=== PATIENT | female | born 1945 | race American Indian/Alaskan Native ===

== ENCOUNTER 2017-03-10 09:21 | Emergency (ER) | payer MEDICARE, OTHER ==
[2017-03-10 09:36] VITALS: RESP 17; TEMP 98.6; BMI 36.2
--- NOTE | 2017-03-10 10:06 | ED PDOC ---
Arrival/HPI - General Chief Complaint: Upper Extremity Problem/Injury Time Seen by Provider: 03/10/17 10:04 Historian: Patient - History of Present Illness Narrative History of Present Illness (Text): 03/10/17 10:04 Ashley Arredondo is a 71 year old female, whose past medical history includes diabetes, who presents to the emergency department complaining neck pain radiating down right arm for 2 days. Patient describes her pain as a burning sensation which worsens upon movement and palpation. Patient denies any chest pain, back pain, or any other complaints at this time. Denies BENNETT. Denies any trauma or injury. Time/Duration: < week (2 days) Symptom Onset: Gradual Symptom Course: Unchanged Activities at Onset: Light Context: Home Past Medical History - Provider Review Nursing Documentation Reviewed: Yes - Infectious Disease Hx of Infectious Diseases: None - Tetanus Immunization Tetanus Immunization: Unknown - Reproductive Menopause: Yes - Cardiac Hx Cardiac Disorders: Yes Hx Hypertension: Yes - Pulmonary Hx Respiratory Disorders: No - Neurological Hx Neurological Disorder: No - HEENT Hx HEENT Disorder: Yes (Glasses) - Renal Hx Renal Disorder: No - Endocrine/Metabolic Hx Endocrine Disorders: Yes Hx Diabetes Mellitus Type 2: Yes - Hematological/Oncological Hx Blood Disorders: No - Integumentary Hx Dermatological Disorder: No - Musculoskeletal/Rheumatological Hx Musculoskeletal Disorders: Yes Hx Arthritis: Yes - Gastrointestinal Hx Gastrointestinal Disorders: No - Genitourinary/Gynecological Hx Genitourinary Disorders: Yes Hx Uterine Cancer: Yes (9 years ago) - Psychiatric Hx Psychophysiologic Disorder: No Hx Substance Use: No - Past Surgical History Past Surgical History: Non-Contributing - Surgical History Hx Cholecystectomy: Yes Hx Hysterectomy: Yes Other/Comment: bowel obstruction - Anesthesia Hx Anesthesia: Yes Hx Anesthesia Reactions: No Hx Malignant Hyperthermia: No - Suicidal Assessment Feels Threatened In Home Enviroment: No Family/Social History - Physician Review Nursing Documentation Reviewed: Yes Family/Social History: No Known Family HX Smoking Status: Never Smoked Hx Alcohol Use: No Hx Substance Use: No Hx Substance Use Treatment: No Allergies/Home Meds Allergies/Adverse Reactions: Allergies No Known Allergies Allergy (Verified 03/10/17 09:43) Home Medications: Home Meds Medication Instructions Recorded Confirmed Atenolol/Chlorthalidone 1 each PO DAILY 12/18/15 03/10/17 [Atenolol-Chlorthalidone 100-25] Metoclopramide [Reglan] 10 mg PO DAILY 12/18/15 03/10/17 Simvastatin [Zocor] 10 mg PO HS 12/18/15 03/10/17 Glimepiride [Amaryl] 4 mg PO BID 09/24/16 03/10/17 Insulin Glargine,Hum.rec.anlog 0 units SC HS 09/24/16 03/10/17 [Eugene Winchester] SITagliptin [Januvia] 100 mg PO DAILY 09/24/16 03/10/17 Physical Exam - Physical Exam Narrative Physical Exam (Text): - Review of Systems Constitutional: Normal. absent: Fatigue, Weight Change, Fevers Eyes: Normal ENT: Normal Respiratory: Normal absent: SOB, Cough, Sputum Cardiovascular: Normal absent: Chest pain, Palpitations, Syncope Gastrointestinal: Normal absent: Abdominal pain, Diarrhea, Nausea, Vomiting Genitourinary: Normal. absent: Dysuria, Frequency, Hematuria Musculoskeletal: Neck pain radiating down right arm. Skin: Normal Neurological: Normal absent: Focal Weakness Endocrine: Normal Hemo/Lymphatic: Normal Psychiatric: Normal - Physical exam Patient appears age appropriate, speaking full sentences without difficulty - Systems Exam Head: Present: Atraumatic, Normocephalic Pupils: Present: PERRL Extraocular Muscles: Present: EOMI Conjunctiva: Present: Normal Mouth: Present: Moist Mucous Membranes Neck: Neck pain quality reproduced with palpation. No: MIDLINE TENDERNESS on palpation, Paraspinal Tenderness Respiratory/Chest: Present: Clear to Auscultation, Good Air Exchange. No: Respiratory Distress, Accessory Muscle Use, Tachypnic Cardiovascular: Present: Regular Rate and Rhythm, Normal S1, S2, Peripheral Pulses Present. No: Murmurs Abdomen: Present: Normal Bowel Sounds, No: Tenderness, Peritoneal Signs, Rebound, Guarding, Distention Back: Normal. No: Midline Tenderness on palpation, Paraspinal Tenderness Upper Extremity: Present: Normal Inspection. RUE with full active and passive ROM. No: Cyanosis, Edema Lower Extremity: Present: Normal Inspection. No: Edema Neurological: No focal neurological deficits of Right UE. Present: GCS=15, Speech Normal, cranial nerves II through XII fully intact with no cerebellar abnormality, neuro-sensory fully intact. Skin: Present: Warm, Dry, Normal Color. No: Rashes Lymphatic: Present: OX3, NI, NC Psychiatric: Present: Alert, Oriented x 3, Normal Insight, Normal Concentration Vital Signs Reviewed: Yes Vital Signs Temp Pulse Resp BP Pulse Ox 03/10/17 10:50 57 L 17 127/63 99 03/10/17 09:34 98.6 F 66 17 147/86 98 Temperature: Afebrile Blood Pressure: Normal Pulse: Regular Respiratory Rate: Normal Appearance: Positive for: Well-Appearing, Non-Toxic, Comfortable Pain Distress: None Mental Status: Positive for: Alert and Oriented X 3 Medical Decision Making ED Course and Treatment: 03/10/17 10:10 Impression: 71 year old female complaining of neck pain radiating down right arm. On physical exam, no focal neurological deficits of Right UE, no midline tenderness on palpation, and neck pain quality is reproduced with palpation. Differential Diagnosis included but are not limited to: cervical radiculopathy Plan: -- Toradol, dc home Prior Visits: Notes and results from previous visits were reviewed. Patient last seen in the ED on 10/08/16 for burning sensation in chest that radiated upwards that day. Patient was discharged home. Pt states she understands to return to the ER right away for new or worsening symptoms or for inability to f/u with PMD or specialist as instructed. Patient states that she fully agrees with and understands discharge instructions. States that she agrees with the plan and disposition. Verbalized and repeated discharge instructions and plan. I have given the patient opportunity to ask any additional questions. - Medication Orders Current Medication Orders: Discontinued Medications Ketorolac Tromethamine (Toradol) 30 mg IM STAT STA Stop: 03/10/17 10:05 Last Admin: 03/10/17 10:15 Dose: 30 mg - Scribe Statement The provider has reviewed the documentation as recorded by the Carmine Mckee Provider Scribe Attestation: All medical record entries made by the Carmine were at my direction and personally dictated by me. I have reviewed the chart and agree that the record accurately reflects my personal performance of the history, physical exam, medical decision making, and the department course for this patient. I have also personally directed, reviewed, and agree with the discharge instructions and disposition. Disposition/Present on Arrival - Present on Arrival Any Indicators Present on Arrival: No History of DVT/PE: No History of Uncontrolled Diabetes: Yes Urinary Catheter: No History of Decub. Ulcer: No History Surgical Site Infection Following: None - Disposition Have Diagnosis and Disposition been Completed?: Yes Diagnosis: Neck pain Disposition: HOME/ ROUTINE Disposition Time: 10:05 Patient Plan: Discharge Condition: GOOD Discharge Instructions (ExitCare): Cervical Radiculopathy (ED) Additional Instructions: PLEASE RETURN TO THE EMERGENCY DEPARTMENT FOR NEW OR WORSENING SYMPTOMS. RETURN RIGHT AWAY IF YOU CANNOT FOLLOW UP WITH YOUR PRIMARY CARE DOCTOR, CLINIC, OR SPECIALIST IN 1-2 DAYS. Prescriptions: Cyclobenzaprine [Flexeril] 5 mg PO BID #10 tab Referrals: Felecia Barker MD [Staff Provider] - Follow up with primary
[2017-03-10 10:53] VITALS: BP 127/63; PULSE 57; O2SAT 99
== END 2017-03-10 10:57 | disposition home or self-care (01) ==
LOC: ED 09:21
DX: M54.2 Cervicalgia (principal); E11.9 Type 2 diabetes mellitus without complications
CPT/HCPCS: 96372; 99283; J1885

== ENCOUNTER 2017-05-28 07:10 | Day surgery (SDC) | payer MEDICARE, OTHER ==
[2017-05-19 12:59] VITALS: BMI 36.0
[2017-05-28] MEDS ORDERED: Sodium Chloride 0.9% 1,000 ML IV SCH (08:00)
[2017-05-28] MEDS ORDERED: Propofol 10 mg/ml Inj (20 ML) ONE (09:32)
[2017-05-28] MEDS ORDERED: Midazolam 2 MG/2 ML VIAL ONE (09:32)
[2017-05-28 10:50] VITALS: BP 135/68; PULSE 51; RESP 19; TEMP 98.4; O2SAT 100
== END 2017-05-28 11:16 | disposition home or self-care (01) ==
LOC: ENDO 07:10
PROVIDERS: ATTEND Specialist
DX: Z12.11 Encounter for screening for malignant neoplasm of colon (principal); K64.8 Other hemorrhoids; I10 Essential (primary) hypertension; E11.9 Type 2 diabetes mellitus without complications; M19.90 Unspecified osteoarthritis, unspecified site; Z79.4 Long term (current) use of insulin; Z85.42 Personal history of malignant neoplasm of other parts of uterus
CPT/HCPCS: 45378; 82948; J2250; J2704; J7040 ×2

== ENCOUNTER 2017-10-13 09:27 | Emergency (ER) | payer MEDICARE, OTHER ==
[2017-10-13 09:28] VITALS: BMI 36.0
[2017-10-13 10:35] VITALS: RESP 18; O2SAT 98
[2017-10-13 11:09] VITALS: TEMP 98
[2017-10-13 11:36] LABS: BASO # 0.03 K/mm3 (0.0-2.0); BASO % 0.3 % (0.0-3.0); EOS # 0.1 (0.0-0.7); GRAN # 6.24 (1.4-6.5); GRAN % 70.1 % (50.0-68.0); HEMOGLOBIN 11.6 g/dL (12.0-16.0); LYMPH % 22.3 % (22.0-35.0); MEAN CELL VOLUME 97.2 fl (80.0-105.0); MEAN CORPUSCULAR HGB CONC 32.9 g/dl (31.0-37.0); MEAN PLATELET VOLUME 10.2 fl (7.0-11.0); MONO # 0.6 (0.1-0.6); MONO % 6.3 % (1.0-6.0); RBC 3.63 10^6/uL (3.5-6.1); RED CELL DISTRIBUTION WIDTH 13.9 % (11.5-14.5); WHITE BLOOD COUNT 8.9 10^3/ul (4.5-11.0)
[2017-10-13 11:46] LABS: ALB/GLOB RATIO 0.9 (1.1-1.8); ALBUMIN 3.6 g/dL (3.0-4.8); ALT/SGPT 32 U/L (7-56); AST/SGOT 28 U/L (14-36); BLOOD UREA NITROGEN 16 mg/dL (7-21); CALCIUM 9.6 mg/dL (8.4-10.5); GFR AFRICAN-AMERICAN > 60; GFR NON-AFRICAN AMERICAN > 60
[2017-10-13 11:47] LABS: INR 1.05 (0.93-1.08); PARTIAL THROMBOPLASTIN TIME 27.2 Seconds (25.1-36.5); PROTHROMBIN TIME 12.1 SECONDS (9.4-12.5)
[2017-10-13 11:58] LABS: TROPONIN I < 0.01 ng/mL
[2017-10-13 12:24] VITALS: BP 135/71; PULSE 64
--- NOTE | 2017-10-13 12:44 | ED PDOC ---
Arrival/HPI - General Chief Complaint: Cough, Cold, Congestion Time Seen by Provider: 10/13/17 10:09 Historian: Patient - History of Present Illness Time/Duration: 1 week Symptom Onset: Gradual Symptom Course: Unchanged Quality: Other (no pain) Activities at Onset: Rest Context: Sitting Past Medical History - Provider Review Nursing Documentation Reviewed: Yes - Travel History Have you recently traveled outside [place] w/in the past 3 mons?: No - Infectious Disease Hx of Infectious Diseases: None - Tetanus Immunization Tetanus Immunization: Unknown - Cardiac Hx Pacemaker: No - Pulmonary Hx Respiratory Disorders: No - Neurological Hx Neurological Disorder: No - HEENT Hx HEENT Disorder: Yes (Glasses) - Renal Hx Renal Disorder: No - Endocrine/Metabolic Hx Endocrine Disorders: Yes Hx Diabetes Mellitus Type 2: Yes - Hematological/Oncological Hx Blood Transfusions: Yes (2008/ WITH CHEMO) Hx Blood Transfusion Reaction: No - Integumentary Hx Dermatological Disorder: No - Musculoskeletal/Rheumatological Hx Musculoskeletal Disorders: Yes (KNEE) - Gastrointestinal Hx Gastrointestinal Disorders: No - Genitourinary/Gynecological Hx Genitourinary Disorders: Yes Hx Uterine Cancer: Yes (9 years ago) - Psychiatric Hx Emotional Abuse: No Hx Physical Abuse: No Hx Substance Use: No - Past Surgical History Past Surgical History: Non-Contributing - Surgical History Hx Cholecystectomy: Yes Hx Hysterectomy: Yes Other/Comment: bowel obstruction - Anesthesia Hx Anesthesia Reactions: No Hx Malignant Hyperthermia: No - Suicidal Assessment Feels Threatened In Home Enviroment: No Family/Social History - Physician Review Nursing Documentation Reviewed: Yes Family/Social History: No Known Family HX Smoking Status: Never Smoked Hx Alcohol Use: No Hx Substance Use: No Hx Substance Use Treatment: No Allergies/Home Meds Allergies/Adverse Reactions: Allergies No Known Allergies Allergy (Verified 05/19/17 12:59) Home Medications: Home Meds Medication Instructions Recorded Confirmed Atenolol/Chlorthalidone 1 each PO [facility] 12/18/15 05/19/17 [Atenolol-Chlorthalidone 100-25] Simvastatin [Zocor] 10 mg PO 12/18/15 05/19/17 Glimepiride [Amaryl] 4 mg PO QAM 09/24/16 05/19/17 Insulin Glargine,Hum.rec.anlog 80 units SC 09/24/16 05/19/17 [Toumarcoo Solostar] SITagliptin [Januvia] 100 mg PO QAM 09/24/16 05/19/17 Cholecalciferol [Vitamin D] 1,000 unit PO QAM 05/19/17 05/19/17 Cyanocobalamin (Vitamin B-12) 2,000 mcg PO QAM 05/19/17 05/19/17 [Vitamin B12] Losartan Potassium [Cozaar] 100 mg PO QAM 05/19/17 05/19/17 Multivit-Min/FA/Lycopen/Lutein 1 each PO QAM 05/19/17 05/19/17 [Centrum Silver Tablet] Omeprazole 40 mg PO QAM 05/19/17 05/19/17 amLODIPine [Norvasc] 5 mg PO QAM 05/19/17 05/19/17 Review of Systems - Review of Systems Constitutional: Normal Eyes: Normal ENT: Normal Respiratory: Cough Cardiovascular: Normal Gastrointestinal: Normal Genitourinary Female: Normal Musculoskeletal: Normal Skin: Normal Neurological: Normal Endocrine: Normal Hemo/Lymphatic: Normal Psychiatric: Normal Physical Exam Vital Signs Reviewed: Yes Vital Signs Temp Pulse Resp BP Pulse Ox 10/13/17 12:24 64 18 135/71 98 10/13/17 11:08 98.0 F 66 18 138/79 98 10/13/17 10:04 98 F 65 18 142/81 98 Temperature: Afebrile Blood Pressure: Hypertensive Pulse: Regular Respiratory Rate: Normal Appearance: Positive for: Well-Appearing, Non-Toxic, Comfortable Pain Distress: None Mental Status: Positive for: Alert and Oriented X 3 - Systems Exam Head: Present: Atraumatic, Normocephalic Pupils: Present: PERRL Extroacular Muscles: Present: EOMI Conjunctiva: Present: Normal Ears: Present: Normal Mouth: Present: Moist Mucous Membranes Pharnyx: Present: Normal Nose (External): Present: Atraumatic Nose (Internal): Present: Normal Inspection Neck: Present: Normal Range of Motion Respiratory/Chest: Present: Clear to Auscultation, Good Air Exchange Cardiovascular: Present: Regular Rate and Rhythm Abdomen: No: Tenderness, Distention, Normal Bowel Sounds, Peritoneal Signs, Rebound, Guarding, McBurney's Point Tender, Rovsing's Sign Present, Hernias, Feeding Tubes, Ostomy Tubes, Mass/Organomegaly, Scars, Other Back: Present: Normal Inspection Upper Extremity: Present: Normal Inspection Lower Extremity: Present: Normal Inspection Neurological: Present: GCS=15, CN II-XII Intact, Speech Normal, Motor Func Grossly Intact Skin: Present: Warm, Normal Color Psychiatric: Present: Alert, Oriented x 3, Normal Insight, Normal Concentration Medical Decision Making ED Course and Treatment: you were treated in the ED today for cough with clear sputum for 1 week but otherwise without any nausea/vomiting/headache/dizziness/difficulty breathing/ chest pain/abdomen pain/numbness/tingling/loss of limb function/pain with urination/travel/history of blood clots. You were otherwise breathing easily, pink moist lips, smiling and talking easily, good strength/sensation, alert/ oriented, walking easily, clear lungs, no abdomen tenderness, no fever temp 98, stable heart rate 65, stable breathing rate 18, excellent oxygen level 98% room air, elevated blood pressure 142/81 which we recommend repeat in 2-3 days primary care office to determine further treatment, you have blood tests no infection count 8.9, stable blood level hemoglobin 11/platelets 193, stable chemistry, heart blood test negative, radiology with mild markings but no acute sign of pneumonia, ECG similar to prior, ___prednisone, observation done in the ED with improvement, counselled to drink lots of fluids and thus discharged home. 1. Recommend prednisone as directed for coughing/breathing relief. recommend albuterol inhaler as directed for coughing relief. 2. Recommend if cough persists 24-48hrs then azithromycin as directed as directed for infection control. 3. Recommend follow-up primary care 2-3 days to review symptoms. 4. If any worsening pain, fever, chills, nausea, vomiting, difficulty breathing, numbness, loss of limb function, pain with urination or any medical condition then return to the ED. 10/13/17 12:45 10/13/17 12:50 10/13/17 12:50 10/13/17 12:51 Reassessment Condition: Re-examined, Improved - Lab Interpretations Lab Results: 10/13/17 11:30 10/13/17 11:30 Lab Results 10/13/17 11:30: PT 12.1, INR 1.05, APTT 27.2 10/13/17 11:30: Sodium 139, Potassium 4.0, Chloride 100, Carbon Dioxide 30, Anion Gap 13, BUN 16, Creatinine 0.7, Est GFR ( Amer) > 60, Est GFR (Non- Af Amer) > 60, Random Glucose 177 H, Calcium 9.6, Total Bilirubin 0.7, AST 28, ALT 32, Alkaline Phosphatase 102, Troponin I < 0.01, Total Protein 7.6, Albumin 3.6, Globulin 4.0, Albumin/Globulin Ratio 0.9 L 10/13/17 11:30: WBC 8.9 D, RBC 3.63, Hgb 11.6 L, Hct 35.3 L, MCV 97.2, MCH 32.0 , MCHC 32.9, RDW 13.9, Plt Count 193, MPV 10.2, Gran % 70.1 H, Lymph % (Auto) 22.3, Gates % (Auto) 6.3 H, Eos % (Auto) 1.0 L, Baso % (Auto) 0.3, Gran # 6.24, Lymph # (Auto) 2.0, Gates # (Auto) 0.6, Eos # (Auto) 0.1, Baso # (Auto) 0.03 I have reviewed the lab results: Yes - RAD Interpretation Radiology Orders: 10/13/17 10:51 CHEST TWO VIEWS (PA/LAT) [RAD] Stat It Professional: ED Physician (cxr mild vascular markings) - EKG Interpretation Interpreted by ED Physician: Yes (sinus rhythm) Comparison: Similar to previous EKG (09/24/16) - Medication Orders Current Medication Orders: Discontinued Medications Prednisone (Prednisone Tab) 60 mg PO STAT ONE Stop: 10/13/17 10:54 Last Admin: 10/13/17 11:18 Dose: 60 mg Disposition/Present on Arrival - Present on Arrival Any Indicators Present on Arrival: No History of DVT/PE: No History of Uncontrolled Diabetes: Yes Urinary Catheter: No History of Decub. Ulcer: No History Surgical Site Infection Following: None - Disposition Have Diagnosis and Disposition been Completed?: Yes Diagnosis: Bronchitis Disposition: HOME/ ROUTINE Disposition Time: 12:52 Patient Plan: Discharge Condition: IMPROVED Discharge Instructions (ExitCare): Acute Bronchitis Additional Instructions: you were treated in the ED today for cough with clear sputum for 1 week but otherwise without any nausea/vomiting/headache/dizziness/difficulty breathing/ chest pain/abdomen pain/numbness/tingling/loss of limb function/pain with urination/travel/history of blood clots. You were otherwise breathing easily, pink moist lips, smiling and talking easily, good strength/sensation, alert/ oriented, walking easily, clear lungs, no abdomen tenderness, no fever temp 98, stable heart rate 65, stable breathing rate 18, excellent oxygen level 98% room air, elevated blood pressure 142/81 which we recommend repeat in 2-3 days primary care office to determine further treatment, you have blood tests no infection count 8.9, stable blood level hemoglobin 11/platelets 193, stable chemistry, heart blood test negative, radiology with mild markings but no acute sign of pneumonia, ECG similar to prior, ___prednisone, observation done in the ED with improvement, counselled to drink lots of fluids and thus discharged home. 1. Recommend prednisone as directed for coughing/breathing relief. recommend albuterol inhaler as directed for coughing relief. 2. Recommend if cough persists 24-48hrs then azithromycin as directed as directed for infection control. 3. Recommend follow-up primary care 2-3 days to review symptoms. 4. If any worsening pain, fever, chills, nausea, vomiting, difficulty breathing, numbness, loss of limb function, pain with urination or any medical condition then return to the ED. Prescriptions: Albuterol HFA [Ventolin HFA 90 mcg/actuation (8 g)] 1 puff IH Q2 PRN 5 Days #1 ea PRN Reason: reactive airway relief Azithromycin [Z-Dayday] 250 mg PO DAILY 5 Days #6 tab Prednisone [Deltasone] 20 mg PO DAILY 5 Days #5 tablet Referrals: Linda Sung MD [Primary Care Provider] - Follow up with primary Forms: [employer] (Bengali), WORK NOTE
--- NOTE | 2017-10-13 12:51 | RAD ---
HISTORY: 72F, cough COMPARISON: 10/08/2016 TECHNIQUE: Chest PA and lateral FINDINGS: LUNGS: No active pulmonary disease. PLEURA: No significant pleural effusion identified. No pneumothorax apparent. CARDIOVASCULAR: Normal. OSSEOUS STRUCTURES: No significant abnormalities. VISUALIZED UPPER ABDOMEN: Normal. OTHER FINDINGS: None. IMPRESSION: No active disease.
--- NOTE | 2017-10-13 14:13 | CARD ---
APPROVED REPORT EKG Measurement Heart [id number] <Conclusion> Sinus bradycardia with 1st degree AV block Cannot rule out Anterior infarct, age undetermined Abnormal ECG
== END 2017-10-13 13:13 | disposition home or self-care (01) ==
LOC: ED 09:27
DX: J20.9 Acute bronchitis, unspecified (principal); E11.9 Type 2 diabetes mellitus without complications

== ENCOUNTER 2018-01-13 07:28 | Emergency (ER) | payer MEDICARE, OTHER ==
[2018-01-13 07:50] VITALS: BMI 28.4
[2018-01-13 07:55] VITALS: RESP 18; O2SAT 96
--- NOTE | 2018-01-13 07:55 | ED PDOC ---
Arrival/HPI - General Time Seen by Provider: 01/13/18 07:50 - History of Present Illness Narrative History of Present Illness (Text): 01/13/18 07:51 Patient is a 72 y/o F presenting with R toe pain. She reports that 1 week ago she stepped on something. 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 She presented because she has persistent pain to the bottom of R toe. patient cannot see bottom of R toe and wants to make sure it is not infected. Denies fever, cough, chest pain or shortness of breath. Last tetanus unknown. Past Medical History - Infectious Disease Hx of Infectious Diseases: None - Tetanus Immunization Tetanus Immunization: Unknown - Cardiac Hx Pacemaker: No - Pulmonary Hx Respiratory Disorders: No - Neurological Hx Neurological Disorder: No - HEENT Hx HEENT Disorder: Yes (Glasses) - Renal Hx Renal Disorder: No - Endocrine/Metabolic Hx Endocrine Disorders: Yes Hx Diabetes Mellitus Type 2: Yes - Hematological/Oncological Hx Blood Transfusions: Yes (2008/ WITH CHEMO) Hx Blood Transfusion Reaction: No - Integumentary Hx Dermatological Disorder: No - Musculoskeletal/Rheumatological Hx Musculoskeletal Disorders: Yes (KNEE) - Gastrointestinal Hx Gastrointestinal Disorders: No - Genitourinary/Gynecological Hx Genitourinary Disorders: Yes Hx Uterine Cancer: Yes (9 years ago) - Psychiatric Hx Emotional Abuse: No Hx Physical Abuse: No Hx Substance Use: No - Past Surgical History Past Surgical History: Non-Contributing - Surgical History Hx Cholecystectomy: Yes Hx Hysterectomy: Yes Other/Comment: bowel obstruction - Anesthesia Hx Anesthesia Reactions: No Hx Malignant Hyperthermia: No - Suicidal Assessment Feels Threatened In Home Enviroment: No Family/Social History Family/Social History: No Known Family HX Smoking Status: Never Smoked Hx Alcohol Use: No Hx Substance Use: No Hx Substance Use Treatment: No Allergies/Home Meds Allergies/Adverse Reactions: Allergies No Known Allergies Allergy (Verified 01/13/18 08:02) Home Medications: Home Meds Medication Instructions Recorded Confirmed Atenolol/Chlorthalidone 1 each PO QAM 12/18/15 01/13/18 [Atenolol-Chlorthalidone 100-25] Simvastatin [Zocor] 10 mg PO HS 12/18/15 01/13/18 Glimepiride [Amaryl] 4 mg PO QAM 09/24/16 01/13/18 SITagliptin [Januvia] 100 mg PO QAM 09/24/16 01/13/18 Cholecalciferol [Vitamin D] 1,000 unit PO QAM 05/19/17 01/13/18 Cyanocobalamin (Vitamin B-12) 2,000 mcg PO QAM 05/19/17 01/13/18 [Vitamin B12] Losartan Potassium [Cozaar] 100 mg PO QAM 05/19/17 01/13/18 Multivit-Min/FA/Lycopen/Lutein 1 each PO QAM 05/19/17 01/13/18 [Centrum Silver Tablet] amLODIPine [Norvasc] 5 mg PO QAM 05/19/17 01/13/18 Insulin Glargine,Hum.rec.anlog 80 unit SC 01/13/18 01/13/18 [Aileen Melarakori U-100] Review of Systems - Review of Systems Constitutional: absent: Weight Change, Fevers, Night Sweats Respiratory: absent: SOB, Cough, Sputum, Wheezing Cardiovascular: absent: Chest Pain, Palpitations, Edema, Calf Pain, BENNETT, Orthopnea, Syncope Gastrointestinal: absent: Abdominal Pain, Constipation, Diarrhea, Nausea, Vomiting Musculoskeletal: Arthralgias Skin: Skin Lesions Neurological: absent: Headache, Dizziness, Focal Weakness, Gait Changes Physical Exam Vital Signs Temp Pulse Resp BP Pulse Ox 01/13/18 07:48 97.8 F 68 18 147/85 96 - Systems Exam Head: Present: Atraumatic, Normocephalic Pupils: Present: PERRL Extroacular Muscles: Present: EOMI Mouth: Present: Moist Mucous Membranes Lower Extremity: Present: NORMAL PULSES, Normal ROM, Temperature Abnormalties, Neurovascularly Intact, Capillary Refill < 2 s, Other (pinpoint lesion to bottom of R big toe. No erythema or warmth. No discharge. Normal ROM, sensation and distal pulses intact). No: CALF TENDERNESS, Cyanosis, Swelling, Deformity Neurological: Present: GCS=15, CN II-XII Intact, Speech Normal, Gait Normal Psychiatric: Present: Alert, Oriented x 3 Medical Decision Making ED Course and Treatment: 01/13/18 09:06 Xray negative for fracture or foreign body. Pinpoint abrasion. Tetanus updated. Has podiatry follow-up 01/13/18 09:08 - Lab Interpretations Lab Results: Lab Results 01/13/18 07:53: POC Glucose (mg/dL) 210 H - RAD Interpretation Radiology Orders: 01/13/18 07:50 FOOT RIGHT GREAT TOE ROUTINE [RAD] Stat - Medication Orders Current Medication Orders: Discontinued Medications Tetanus/Reduced Diphtheria/Acell Pertussis (Boostrix Vaccine Inj) 0.5 ml IM .ONCE ONE Stop: 01/13/18 07:57 Last Admin: 01/13/18 08:38 Dose: 0.5 ml MAR Immunization Data Document 01/13/18 08:38 SRE (Rec: 01/13/18 08:38 SRE [id number]) Immunization Data Vaccine Information Sheet Given Yes Immunization Registry Document 01/13/18 08:38 SRE (Rec: 01/13/18 08:38 SRE [id number]) Immunization Registry Consent Date 08/20/17 Disposition/Present on Arrival - Present on Arrival Any Indicators Present on Arrival: No History of DVT/PE: No History of Uncontrolled Diabetes: Yes Urinary Catheter: No History Surgical Site Infection Following: None - Disposition Have Diagnosis and Disposition been Completed?: Yes Diagnosis: Foot pain Disposition: HOME/ ROUTINE Disposition Time: 09:07 Patient Plan: Discharge Patient Problems: Current Active Problems Problem Status Onset Foot pain Acute Condition: GOOD Additional Instructions: Follow-up with PMD within 2 days. Return to ED if condition worsens. 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
[2018-01-13] MEDS ORDERED: TDAP Vaccine 0.5 mL Syr IM ONE (07:56)
--- NOTE | 2018-01-13 08:57 | RAD ---
PROCEDURE: Radiographs of the right great toe. TECHNIQUE:: AP radiograph of the right foot, with oblique and lateral view of the right great toe. COMPARISON: None. FINDINGS: BONES: Normal. No fracture. JOINTS: Normal. SOFT TISSUES: Normal. OTHER FINDINGS: None. IMPRESSION: Normal right great toe radiographs.
[2018-01-13 17:29] VITALS: BP 140/80; TEMP 97.9
[2018-01-13 17:30] VITALS: PULSE 67
== END 2018-01-13 11:30 | disposition home or self-care (01) ==
LOC: ED 07:28
DX: M79.671 Pain in right foot (principal); E11.9 Type 2 diabetes mellitus without complications; Z23 Encounter for immunization

== ENCOUNTER 2018-05-23 09:26 | Emergency (ER) | payer MEDICARE, OTHER ==
[2018-05-23 09:46] VITALS: BP 142/83; BMI 35.1
--- NOTE | 2018-05-23 10:09 | ED PDOC ---
Arrival/HPI - General Historian: Patient - History of Present Illness Narrative History of Present Illness (Text): 05/23/18 10:09 A 73 year old female, whose past medical history includes diabetes, presents to the emergency department with a complaint of 1 week duration, right-sided neck pain. The patient states that she woke up about 1 week ago with right sided neck pain. She states that the pain sometimes radiates down her right arm, but currently the pain is only at her neck. She denies numbness, weakness, tingling in the extremity. Pt states pain is worse when turning the head to the right. She notes that she took Aleve with no relief of her symptoms. She has experie nced these current symptoms in the past. PT states today she was feeling a little nauseous when she woke up due to the pain, but the symptoms resolved. The patient denies fevers, chills, headache, dizziness, abdominal pain, vomiting, diarrhea, back pain, chest pain, shortness of breath, dyspnea on exertion, cough or any other complaint. <Kathy Gorman - Last Filed: 05/23/18 14:46> <Venkata Walton - Last Filed: 05/24/18 16:47> - General Chief Complaint: Upper Extremity Problem/Injury Time Seen by Provider: 05/23/18 10:08 Past Medical History - Provider Review Nursing Documentation Reviewed: Yes - Infectious Disease Hx of Infectious Diseases: None - Tetanus Immunization Tetanus Immunization: Unknown - Cardiac Hx Pacemaker: No - Pulmonary Hx Respiratory Disorders: No - Neurological Hx Neurological Disorder: No - HEENT Hx HEENT Disorder: Yes (Glasses) - Renal Hx Renal Disorder: No - Endocrine/Metabolic Hx Endocrine Disorders: Yes Hx Diabetes Mellitus Type 2: Yes - Hematological/Oncological Hx Blood Transfusions: Yes (2008/ WITH CHEMO) Hx Blood Transfusion Reaction: No - Integumentary Hx Dermatological Disorder: No - Musculoskeletal/Rheumatological Hx Musculoskeletal Disorders: Yes (KNEE) - Gastrointestinal Hx Gastrointestinal Disorders: No - Genitourinary/Gynecological Hx Genitourinary Disorders: Yes Hx Uterine Cancer: Yes (9 years ago) - Psychiatric Hx Emotional Abuse: No Hx Physical Abuse: No Hx Substance Use: No - Past Surgical History Past Surgical History: Non-Contributing - Surgical History Hx Cholecystectomy: Yes Hx Hysterectomy: Yes Other/Comment: bowel obstruction - Anesthesia Hx Anesthesia Reactions: No Hx Malignant Hyperthermia: No - Suicidal Assessment Feels Threatened In Home Enviroment: No <Kathy Gorman Luis - Last Filed: 05/23/18 14:46> Family/Social History - Physician Review Nursing Documentation Reviewed: Yes Family/Social History: No Known Family HX Smoking Status: Never Smoked Hx Alcohol Use: No Hx Substance Use: No Hx Substance Use Treatment: No <Kathy Gorman Luis - Last Filed: 05/23/18 14:46> Allergies/Home Meds <Rakan Gormanmana Smith - Last Filed: 05/23/18 14:46> <AntonVenkata - Last Filed: 05/24/18 16:47> Allergies/Adverse Reactions: Allergies No Known Allergies Allergy (Verified 05/23/18 09:37) Home Medications: Home Meds Medication Instructions Recorded Confirmed Atenolol/Chlorthalidone 1 each PO QAM 12/18/15 05/23/18 [Atenolol-Chlorthalidone 100-25] Simvastatin [Zocor] 10 mg PO 12/18/15 05/23/18 RX: Glimepiride [Amaryl] 4 mg PO QAM 09/24/16 05/23/18 SITagliptin [Januvia] 100 mg PO QAM 09/24/16 05/23/18 Multivit-Min/FA/Lycopen/Lutein 1 each PO QAM 05/19/17 05/23/18 [Centrum Silver Tablet] RX: Losartan Potassium [Cozaar] 100 mg PO QAM 05/19/17 05/23/18 amLODIPine [Norvasc] 5 mg PO QAM 05/19/17 05/23/18 Insulin Glargine,Hum.rec.anlog 80 unit [facility] 01/13/18 05/23/18 [Basaglar Kwikpen U-100] Omeprazole 40 mg PO DAILY 05/23/18 05/23/18 Review of Systems - Physician Review All systems were reviewed & negative as marked: Yes - Review of Systems Constitutional: absent: Fevers Eyes: absent: Vision Changes, Photophobia, Eye Pain Respiratory: absent: SOB, Cough Cardiovascular: absent: Chest Pain, Palpitations, BENNETT Gastrointestinal: Nausea (resolved). absent: Abdominal Pain, Diarrhea, Vomiting Musculoskeletal: Neck Pain (Right neck pain.). absent: Arthralgias, Back Pain Skin: absent: Rash, Pruritis Neurological: absent: Headache, Dizziness Psychiatric: absent: Anxiety, Depression <Kathy Gorman - Last Filed: 05/23/18 14:46> Physical Exam Vital Signs Reviewed: Yes Vital Signs Temp Pulse Resp BP Pulse Ox 05/23/18 09:42 98.3 F 65 19 142/83 100 Temperature: Afebrile Blood Pressure: Normal Pulse: Regular Respiratory Rate: Normal Appearance: Positive for: Well-Appearing, Non-Toxic, Comfortable Pain Distress: None Mental Status: Positive for: Alert and Oriented X 3 - Systems Exam Head: Present: Atraumatic, Normocephalic Pupils: Present: PERRL Extroacular Muscles: Present: EOMI Conjunctiva: Present: Normal Mouth: Present: Moist Mucous Membranes Neck: Present: Other (Tenderness over the right trapezius). No: MIDLINE TENDERNESS Respiratory/Chest: Present: Clear to Auscultation, Good Air Exchange. No: Respiratory Distress, Accessory Muscle Use Cardiovascular: Present: Regular Rate and Rhythm, Normal S1, S2. No: Murmurs Abdomen: No: Tenderness, Distention, Peritoneal Signs Back: Present: Normal Inspection. No: Midline Tenderness Upper Extremity: Present: Normal Inspection. No: Cyanosis, Edema Lower Extremity: Present: Normal Inspection. No: Edema Neurological: Present: GCS=15, CN II-XII Intact, Speech Normal Skin: Present: Warm, Dry, Normal Color. No: Rashes Psychiatric: Present: Alert, Oriented x 3, Normal Insight, Normal Concentration <Kathy Gorman T - Last Filed: 05/23/18 14:46> Vital Signs Temp Pulse Resp BP Pulse Ox 05/23/18 11:38 98.0 F 69 18 98 05/23/18 09:42 98.3 F 65 19 142/83 100 <Venkata Walton - Last Filed: 05/24/18 16:47> Medical Decision Making ED Course and Treatment: 05/23/18 10:16 Impression: A 73 year old female presents to the emergency department with a complaint of right sided neck pain. Plan: -- EKG -- Cervical Spine X-Ray -- Toradol and Flexeril -- Reassess and disposition Prior Visits: Notes and results from previous visits were reviewed. Progress Notes: EKG: Ordered, reviewed, and independently interpreted the EKG. Rate : 62 BPM Rhythm : NSR Interpretation : 1st degree AV block 05/23/18 11:20 xray c-spine; FINDINGS: BONES: Alignment maintained. No fracture. Dens Intact. DISC SPACES: Disc degeneration with anterior osteophytes at C4-5 and C5-6 SOFT TISSUES: Normal. No prevertebral soft tissue swelling. OTHER FINDINGS: None. IMPRESSION: Disc degeneration with anterior osteophytes at C4-5 and C5-6 pt most likely with cervical radiculopathy/musculoskelatal neck pain. will have patient f/u with orthopedist. pt is non toxic well appearing; no distress. stable vitals. feeling better with medications. advised patient to f/u with PMD and orthopedist. advised immediate return if symptoms worsen,persist or if new symptoms develop. impression: neck pain, DJD cervical motrin every 6 hours as needed for pain flexeril every 8 hours as needed for muscle spasms Follow up with the primary care physician within the next 2 days Follow up with the orthopedist within the next 2 days. return immediately if symptoms worsen,persist or if new symptoms develop. Reassessment Condition: Re-examined, Improved - EKG Interpretation Interpreted by ED Physician: Yes Type: 12 lead EKG <Kathy Gorman T - Last Filed: 05/23/18 14:46> - RAD Interpretation Radiology Orders: 05/23/18 10:10 CERVICAL SPINE >18YR W/OBLIQUE [RAD] Stat - Medication Orders Current Medication Orders: Discontinued Medications Cyclobenzaprine HCl (Flexeril) 5 mg PO STAT STA Stop: 05/23/18 10:13 Last Admin: 05/23/18 10:46 Dose: 5 mg Ketorolac Tromethamine (Toradol) 30 mg IM STAT STA Stop: 05/23/18 10:13 Last Admin: 05/23/18 10:46 Dose: 30 mg [facility] Pain Assessment Document 05/23/18 10:46 [email or web address] (Rec: 05/23/18 10:46 [email or web address] [id number]) Pain Reassessment Is this a pain reassessment? No Sleep Is patient sleeping during reassessment? No Presence of Pain Presence of Pain Yes Pain Scale Used Protocol: PSCALES Pain Scale Used Numeric Location Pain Location Body Site Neck Description Description Constant Intensity of Pain at present 7 Pain Behavior Facial Grimacing Aggravating Factors Changing Position Alleviating Factors/Management Medication Techniques Alleviating Factors Medication IM Administration Charges Document 05/23/18 10:46 [email or web address] (Rec: 05/23/18 10:46 [email or web address] [id number]) Injection Site MAR Injection Site Left Deltoid Charges for Administration # of IM Administrations 1 <Venkata Walton - Last Filed: 05/24/18 16:47> - Scribe Statement The provider has reviewed the documentation as recorded by the Brayanibe Ekaterina Arroyo Provider Scribe Attestation: All medical record entries made by the Scribe were at my direction and personally dictated by me. I have reviewed the chart and agree that the record accurately reflects my personal performance of the history, physical exam, medical decision making, and the department course for this patient. I have also personally directed, reviewed, and agree with the discharge instructions and disposition <Kathy Gorman - Last Filed: 05/23/18 14:46> - PA / [employer]UST[employer]Y [employer] HEALTH TECHNICIAN / Resident Statement MD/ has reviewed & agrees with the documentation as recorded. <Venkata Walton - Last Filed: 05/24/18 16:47> Disposition/Present on Arrival - Present on Arrival Any Indicators Present on Arrival: Yes History of DVT/PE: No History of Uncontrolled Diabetes: Yes Urinary Catheter: No History of Decub. Ulcer: No History Surgical Site Infection Following: None - Disposition Have Diagnosis and Disposition been Completed?: Yes Disposition Time: 10:40 Patient Plan: Discharge <Kathy Gorman - Last Filed: 05/23/18 14:46> <Venkata Walton - Last Filed: 05/24/18 16:47> - Disposition Diagnosis: Neck pain, Arthritis Disposition: HOME/ ROUTINE Condition: GOOD Discharge Instructions (ExitCare): Neck Pain Additional Instructions: motrin every 6 hours as needed for pain flexeril every 8 hours as needed for muscle spasms Follow up with the primary care physician within the next 2 days Follow up with the orthopedist within the next 2 days. return immediately if symptoms worsen,persist or if new symptoms develop. Prescriptions: Cyclobenzaprine [Flexeril] 5 mg PO Q8 #10 tab Referrals: Mary Calvert MD [Medical Doctor] - Follow up with primary Jorge Alberto Souza MD [Staff Provider] - Follow up with primary [facility] [Outside] - Follow up with primary Forms: Divided (Lithuanian)
--- NOTE | 2018-05-23 11:24 | RAD ---
Date of service: 05/23/2018 PROCEDURE: Cervical Spine Radiographs. HISTORY: Pain. COMPARISON: None. FINDINGS: BONES: Alignment maintained. No fracture. Dens Intact. DISC SPACES: Disc degeneration with anterior osteophytes at C4-5 and C5-6 SOFT TISSUES: Normal. No prevertebral soft tissue swelling. OTHER FINDINGS: None. IMPRESSION: Disc degeneration with anterior osteophytes at C4-5 and C5-6
[2018-05-23 11:41] VITALS: PULSE 69; RESP 18; TEMP 98; O2SAT 98
--- NOTE | 2018-05-23 14:08 | CARD ---
APPROVED REPORT Date of service: 05/23/2018 EKG Measurement Heart [id number] <Conclusion> Sinus rhythm with 1st degree AV block Otherwise normal ECG
== END 2018-05-23 11:41 | disposition home or self-care (01) ==
LOC: ED 09:26
DX: M54.2 Cervicalgia (principal); M19.90 Unspecified osteoarthritis, unspecified site; E11.9 Type 2 diabetes mellitus without complications
CPT/HCPCS: 72050; 93005; 96372; 99282; J1885